=== PATIENT | female | born 1955 | race African-American/Black ===

== ENCOUNTER → 2021-12-05 | Outpatient (CLI) | payer MEDICARE ==
[~2021-12-05] MED LIST: IOPAMIDOL 300MG/ML 100 ML INFUS..BTL IV ONE; LIDOCAINE HCL 1% LOCAL INJ 20 ML VIAL ONE; SODIUM CHLORIDE 0.9% 250ML 250 ML ONE
== END ==
LOC: DX 12:17
PROVIDERS: ATTEND Urology
DX: N13.30 Unspecified hydronephrosis (principal); T19.9XXD Foreign body in genitourinary tract, part unspecified, subsequent encounter
CPT/HCPCS: C1729; C1769; J2001; J7050; Q9967; 50435

== ENCOUNTER → 2022-03-12 | Outpatient (CLI) | payer MEDICARE, OTHER ==
[~2022-03-12] MED LIST changes: -IOPAMIDOL 300MG/ML 100 ML INFUS..BTL IV ONE; +IOPAMIDOL 370 MG/ML 100 ML INFUS..BTL INJ ONE
== END ==
LOC: DX 09:08
PROVIDERS: ATTEND Urology
DX: N13.1 Hydronephrosis with ureteral stricture, not elsewhere classified (principal)
CPT/HCPCS: J2001; J7050; Q9967; 50435; C1729; C1769

== ENCOUNTER 2022-05-24 20:13 | Emergency (ER) | payer MEDICARE, OTHER ==
[~2022-05-24] VITALS: Ht 172.7 cm; Wt 130.6 kg
[2022-05-24] MEDS ORDERED: SODIUM CHLORIDE 0.9% 1000ML 1,000 ML IV ONE (21:45)
[2022-05-24 22:29] LABS: ALBUMIN 4.2 g/dL (3.5-5.0); ALBUMIN/GLOBULIN RATIO 0.9 (0.8-2.0); ANION GAP 18.8 mmol/L (8-16); CALCIUM 9.6 mg/dL (8.4-10.2); CREATININE, SERUM 1.28 mg/dL (0.57-1.11); POTASSIUM 3.8 mmol/L (3.5-5.1)
[2022-05-24 22:30] LABS: BASOPHILS % 0.4 % (0.0-1.0); EOSINOPHILS # (AUTO) 0.1 (0.0-0.4); EOSINOPHILS % 1.1 % (0.0-6.0); HEMATOCRIT 36.9 % (34.2-44.1); HEMOGLOBIN 10.9 g/dL (12.0-16.0); LYMPHOCYTES % 36.3 % (18.0-39.1); MEAN CORPUSCULAR HEMOGLOBIN 24.5 pg (28-32); MEAN CORPUSCULAR HGB CONC 29.5 g/dL (31-35); MEAN CORPUSCULAR VOLUME 83.1 fL (81-99); MONOCYTES # (AUTO) 0.3 (0.2-0.8); NEUTROPHILS # (AUTO) 4.8 (2.1-6.9); NEUTROPHILS % 58.1 % (38.7-80.0); PLATELET COUNT 429 x10e3/uL (140-360); RED BLOOD COUNT 4.44 x10e6/uL (3.6-5.1); RED CELL DISTRIBUTION WIDTH 15.7 % (11.7-14.4)
[2022-05-24 23:00] LABS: CLARITY,URINE CLOUDY (CLEAR); COLOR,URINE YELLOW (YELLOW)
[2022-05-24 23:01] LABS: KETONES,URINE NEGATIVE (NEGATIVE); LEUKOCYTE ESTERASE ,URINE 1+ (NEGATIVE); NITRITE,URINE NEGATIVE (NEGATIVE); PROTEIN,URINE DIPSTICK 2+ (NEGATIVE); URINE UROBILINOGEN 0.2 mg/dL (0.2 - 1)
[2022-05-24 23:21] LABS: BACTERIA,URINE MANY /HPF; EPITHELIAL CELLS,URINE MANY /LPF; WBC,URINE (MAN) >50 /HPF (0-5)
[2022-05-24] MEDS ORDERED: IOPAMIDOL 370 MG/ML 100 ML INFUS..BTL INJ ONE (23:28)
[2022-05-25] MEDS ORDERED: LEVOFLOXACIN750 MG PO (02:00)
[2022-05-25 02:36] VITALS: BP 152/84
== END 2022-05-25 02:22 | disposition home or self-care (01) ==
LOC: ER 21:16
DX: R30.0 Dysuria (principal); N39.0 Urinary tract infection, site not specified; R42 Dizziness and giddiness; M54.50 Low back pain, unspecified; I10 Essential (primary) hypertension; E11.9 Type 2 diabetes mellitus without complications; E78.5 Hyperlipidemia, unspecified; M10.9 Gout, unspecified; M54.9 Dorsalgia, unspecified; G89.29 Other chronic pain
CPT/HCPCS: 36415; 74177; 80053; 81001; 84484; 85025; 87086; 87400; 93005; 99284; J0696; J7030; Q9967

== ENCOUNTER → 2022-07-29 | Outpatient (CLI) | payer MEDICARE, OTHER ==
[~2022-07-29] MED LIST changes: +IOPAMIDOL 300MG/ML 50ML INFUS..BTL IV ONE; -IOPAMIDOL 370 MG/ML 100 ML INFUS..BTL INJ ONE; +LEVOFLOXACIN750 MG PO; +LIDOCAINE 1% 10 ML MULTIDOSE VIAL IJ ONE; -LIDOCAINE HCL 1% LOCAL INJ 20 ML VIAL ONE
== END ==
LOC: DX 11:33
PROVIDERS: ATTEND Urology
DX: N13.1 Hydronephrosis with ureteral stricture, not elsewhere classified (principal)
CPT/HCPCS: J7050; Q9967; 50435

== ENCOUNTER 2022-11-18 15:46 | Emergency (ER) | payer MEDICARE, OTHER ==
[~2022-11-18] VITALS: Ht 172.7 cm; Wt 130.6 kg
[~2022-11-18 15:46] MED LIST changes: -IOPAMIDOL 300MG/ML 50ML INFUS..BTL IV ONE; -LIDOCAINE 1% 10 ML MULTIDOSE VIAL IJ ONE; -SODIUM CHLORIDE 0.9% 250ML 250 ML ONE
[2022-11-18 16:41] VITALS: O2SAT 99
[2022-11-18] MEDS ORDERED: CEFDINIR300 MG PO (17:03)
[2022-11-18] MEDS ORDERED: CEFDINIR 300 MG CAP PO ONE (17:15)
== END 2022-11-18 17:15 | disposition home or self-care (01) ==
LOC: ER 16:08
DX: Z43.6 Encounter for attention to other artificial openings of urinary tract (principal); R50.9 Fever, unspecified; N39.0 Urinary tract infection, site not specified; I10 Essential (primary) hypertension; E11.9 Type 2 diabetes mellitus without complications; E78.5 Hyperlipidemia, unspecified; M10.9 Gout, unspecified; M54.9 Dorsalgia, unspecified; G89.29 Other chronic pain
CPT/HCPCS: 99282

== ENCOUNTER → 2022-11-29 | Outpatient (CLI) | payer MEDICARE, OTHER ==
[~2022-11-29] MED LIST changes: +CEFDINIR300 MG PO; +FENTANYL CITRATE/PF 100MCG/2 ML INJ ONE; +LIDOCAINE HCL 1% LOCAL INJ 20 ML VIAL ONE
== END ==
LOC: DX 10:53
PROVIDERS: ATTEND Urology
DX: T19.9XXD Foreign body in genitourinary tract, part unspecified, subsequent encounter (principal); N13.30 Unspecified hydronephrosis
CPT/HCPCS: C1769; J2001; 50435

== ENCOUNTER → 2023-01-02 | Outpatient (CLI) | payer MEDICARE, OTHER ==
[~2023-01-02] MED LIST changes: -FENTANYL CITRATE/PF 100MCG/2 ML INJ ONE; +IOPAMIDOL 370 MG/ML 100 ML INFUS..BTL INJ ONE; -LIDOCAINE HCL 1% LOCAL INJ 20 ML VIAL ONE; +SODIUM CHLORIDE 0.9% 250ML 250 ML ONE
== END ==
LOC: DX 11:38
PROVIDERS: ATTEND Urology
DX: N13.30 Unspecified hydronephrosis (principal); T19.9XXD Foreign body in genitourinary tract, part unspecified, subsequent encounter
CPT/HCPCS: 50389; 50396; 74425; J7050; Q9967